=== PATIENT | female | born 2000 | race Caucasian/White ===

== ENCOUNTER 2021-01-03 16:48 | Emergency (ER) | payer MEDICAID, SELFPAY ==
--- NOTE | ~2021-01-03 | XR_ITS ---
XR foot LT min 3V DATE: 01/03/2021 17:27 INDICATION: Rolled ankle. Anteromedial left ankle and foot pain TECHNIQUE: 4 views COMPARISON: None FINDINGS: No fracture or dislocation, periosteal reaction or bone destruction is detected. Os tibiale externum, normal variant. IMPRESSION: Negative Reviewed, dictated and finalized at location A. IMPRESSION: Negative
--- NOTE | ~2021-01-03 | XR_ITS ---
XR ankle LT min 3V DATE: 01/03/2021 17:26 INDICATION: Rolled ankle. Anteromedial ankle and foot pain TECHNIQUE: 4 views COMPARISON: None FINDINGS: No fracture or dislocation of the ankle or disruption of the ankle mortise. No periosteal r eaction or bone destruction. IMPRESSION: No fracture or dislocation of the left ankle Reviewed, dictated and finalized at location A.
--- NOTE | 2021-01-03 16:59 | ED.LOWEXIN ---
HPI - Extremity Injury (Lower) General Chief Complaint: Extremity Injury, Lower Stated Complaint: Fell at home has a injury to left Ankle Time Seen by Provider: 01/03/21 17:45 Source: patient and RN notes reviewed Mode of arrival: ambulatory Limitations: no limitations History of Present Illness HPI Narrative: 20-year-old female presents with concern for left ankle and foot pain after rolling her ankle yesterday when she stepped on a rock. She reports medial ankle pain and pain at the dorsal aspect of the foot or toes. She reports she has been using ice. She denies decreased sensation, strength. Reports an old fracture in the left foot MD complaint: ankle injury and foot injury Related Data Home Medications Medication Instructions Recorded Confirmed No Home Medications 01/03/21 01/03/21 Allergies Allergy/AdvReac Type Severity Reaction Status Date / Time No Known Allergies Allergy Verified 01/03/21 17:07 Review of Systems Review of Systems: Narrative: CONSTITUTIONAL: Denies malaise, chills, sweats, or fever. SKIN: Denies left ankle and foot lacerations, abrasions, redness, warmth MUSCULOSKELETAL: Ports left ankle pain, swelling NEUROLOGIC: Denies numbness, weakness All systems reviewed & are unremarkable except as noted in HPI and below PMFSH Comments At time of signature, agree with nursing past medical, surgical, social and family history. There is no relevant family history pertinent to the presenting complaint Exam Narrative: Exam Narrative: GENERAL: Well-appearing, well-nourished, and in no acute distress. HEAD: Normocephalic, atraumatic. EYES: PERRLA, conjunctivae clear NECK: Supple. CHEST: Speaks in full sentences. No respiratory distress. HEART: Regular rate and rhythm. Normal and equal peripheral pulses. EXTREMITIES: Left ankle, foot, digits have normal strength and sensation, normal range of motion. No edema or ecchymosis. 5/5 strength with ankle and digit flexion and extension. Normal sensation with sensitivity to light touch and pain. No point tenderness. No open wounds, no skin tenting, no devitalized tissue or atrophy, no trophic changes, no obvious deformity, alignment normal, nearby joints and structures intact. Distal pulses palpable and equal bilaterally, skin warm, dry, pink. Capillary refill less than 3 seconds. SKIN: Warm, dry, no rash. NEURO: Alert and oriented x3. PSYCH: Normal mood and affect Course Course Emergency Course: Patient is aware of diagnosis, understands and agrees to treatment plan. Anticipatory guidance given. Patient agrees to follow-up as directed and is aware of reasons to seek care at the emergency department. Portions of this record may have been created with voice recognition software Vital Signs Vital signs: Vital Signs Temperature 98.4 F 01/03/21 17:00 Pulse Rate 94 01/03/21 17:00 Respiratory Rate 16 01/03/21 17:00 Blood Pressure 132/85 01/03/21 17:00 Pulse Oximetry 98 01/03/21 17:00 Temperature 98.4 F 01/03/21 17:00 Pulse Rate 94 01/03/21 17:00 Respiratory Rate 16 01/03/21 17:00 Blood Pressure 132/85 01/03/21 17:00 Pulse Oximetry 98 01/03/21 17:00 Reviewed. MDM - Extremity Injury (Lower) MDM Narrative Medical decision making narrative: Patients injury and pain is consistent with musculoskeletal etiology. No signs of neurological or vascular compromise on exam. Compartments and tissues are soft without signs of compartment syndrome. Pain is felt appropriate for further evaluation on an outpatient basis. Imaging Data My impression: Images reviewed, interpreted by radiologist, agree, see report. Radiologist's impression: XR ankle LT min 3V DATE: 01/03/2021 17:26 INDICATION: Rolled ankle. Anteromedial ankle and foot pain TECHNIQUE: 4 views COMPARISON: None FINDINGS: No fracture or dislocation of the ankle or disruption of the ankle mortise. No periosteal reaction or bone destruction. IMPRESSION: No fracture
[2021-01-03 17:00] VITALS: BP 132/85; PULSE 94; RESP 16; TEMP 36.9; O2SAT 98
== END 2021-01-03 17:59 | disposition home or self-care (01) ==
PROVIDERS: Emergency Provider Nurse Practitioner
DX: S93.402A Sprain of unspecified ligament of left ankle, initial encounter (principal); S96.912A Strain of unspecified muscle and tendon at ankle and foot level, left foot, initial encounter; X50.9XXA Other and unspecified overexertion or strenuous movements or postures, initial encounter
CPT/HCPCS: 73610; 73630; 99213; G0463

== ENCOUNTER 2021-10-20 11:13 | Emergency (ER) | payer OTHER, SELFPAY ==
[2021-10-20 11:17] VITALS: BP 141/76; PULSE 95; RESP 16; TEMP 36.4; O2SAT 96
[2021-10-20 11:34] VITALS: BP 141/76; PULSE 95; RESP 16; TEMP 36.4; O2SAT 96
--- NOTE | 2021-10-20 12:04 | ED.URI ---
HPI - URI/Sore Throat General Chief Complaint: Upper Respiratory Infection Stated Complaint: Cough, body aches Time Seen by Provider: 10/20/21 11:41 Source: patient and RN notes reviewed Mode of arrival: ambulatory Limitations: no limitations History of Present Illness HPI Narrative: Patient presents today complaining of 3-day history of cough with small amount of yellow sputum, body aches, chills sweats and chills, postnasal drip, headache. Denies fever, chest pain, shortness of breath. She is currently pain-free. Denies any sick contacts. She has been taking cold and flu medication with relief yesterday. Patient vapes. She did receive a flu vaccine this season. She has not been vaccinated against COVID-19. MD elicited complaint: cough Related Data Home Medications Medication Instructions Recorded Confirmed No Home Medications 01/03/21 10/20/21 Allergies Allergy/AdvReac Type Severity Reaction Status Date / Time No Known Allergies Allergy Verified 10/20/21 11:34 Review of Systems Review of Systems: CONSTITUTIONAL: Denies fever, chills, or sweats.+ Body aches, sweats and chills EYES: Denies visual changes, redness, or discharge. ENT: Denies rhinorrhea, congestion, sore throat, or otalgia.+ Postnasal drip CARDIOVASCULAR: Denies chest pain, palpitations, or edema. RESPIRATORY: Denies dyspnea.+ Cough GASTROINTESTINAL: Denies abdominal pain, nausea, vomiting, or diarrhea. GENITOURINARY: Denies dysuria or hematuria. SKIN: Denies rash, itching, or wounds. MUSCULOSKELETAL: Denies back pain, joint pain, or myalgia. NEUROLOGIC: Denies numbness, tingling, or weakness.+ Headache PSYCH: Denies depression or anxiety. [facility] Past Medical History Medical History (Updated 10/20/21 @ 12:11 by Barb Mc, [facility], ) Delivery with history of Pulmonary embolism Comments At time of signature, I have reviewed and agree with nursing past medical, surgical, social and family history unless otherwise noted. Please see nursing chart for further information. There is no relevant family history pertinent to the presenting complaint Exam Narrative: GENERAL: Mildly ill-appearing, well-nourished, and in no acute distress. HEAD: Normocephalic, atraumatic. EYES: EOMI. No redness or drainage. Conjunctivae normal. ENT: Mucous membranes pink and moist. Nares congested. No rhinorrhea. TMs normal bilaterally. Throat normal. Uvula midline. NECK: Normal AROM. Supple. No lymphadenopathy. CHEST: No respiratory distress. Clear to auscultation. HEART: Regular rate and rhythm. No murmur appreciated. Normal peripheral pulses. EXTREMITIES: Normal range of motion. No edema. SKIN: Warm, dry, no rash. Capillary refill normal. Normal skin turgor. NEURO: No focal deficits. Alert and oriented x3. Gait steady. PSYCH: Normal affect. No signs of depression or anxiety. Course Course Emergency Course: Patient declines COVID-19 test today. Level of Care: Express Care Visit Vital Signs Vital signs: Vital Signs Temperature 97.6 F 10/20/21 11:17 Pulse Rate 95 10/20/21 11:17 Respiratory Rate 16 10/20/21 11:17 Blood Pressure 141/76 H 10/20/21 11:17 Pulse Oximetry 96 10/20/21 11:17 Temperature 97.6 F 10/20/21 11:34 Pulse Rate 95 10/20/21 11:34 Respiratory Rate 16 10/20/21 11:34 Blood Pressure 141/76 H 10/20/21 11:34 Pulse Oximetry 96 10/20/21 11:34 Reviewed. Pt has been instructed to follow up with her PCP regarding her elevated blood pressure today. MDM - URI/Sore Throat Differential Diagnosis Differential diagnosis: Likely upper respiratory infection, sinusitis, viral infection, bronchitis and pharyngitis Lab Data Attestation: I reviewed the patient's lab results. Labs: Influenza A Screen Negative Reference Range: Negative Influenza B Screen Negative Reference Range: Neg
== END 2021-10-20 12:16 | disposition home or self-care (01) ==
PROVIDERS: Emergency Provider Nurse Practitioner
DX: J11.1 Influenza due to unidentified influenza virus with other respiratory manifestations (principal); Z86.711 Personal history of pulmonary embolism
CPT/HCPCS: 87804; 99213; G0463

== ENCOUNTER 2022-07-19 18:25 | Emergency (ER) | payer OTHER, SELFPAY | END 2022-07-19 18:30 | disposition left against medical advice (07) | LOC: ANHED 07-20 01:34 | DX: Z53.21 Procedure and treatment not carried out due to patient leaving prior to being seen by health care provider (principal) | CPT/HCPCS: 99199 ==

== ENCOUNTER 2023-01-30 16:49 | Emergency (ER) | payer OTHER, SELFPAY ==
--- NOTE | ~2023-01-30 | XR_ITS ---
EXAM: XR abdomen/kub 1V DATE: 01/30/2023 17:33 HISTORY: LUQ PAIN SINCE 01/25/23. . COMPARISON: None available. FINDINGS: Clear lung bases. Normal bowel gas pattern. No organomegaly. No abnormal abdominal calcifi cation. Regional bones and soft tissues normal for age. IMPRESSION: No radiographic evidence of obstruction or ileus. Reviewed, dictated and finalized at location K.
[2023-01-30 16:54] VITALS: BP 153/84; PULSE 83; RESP 20; TEMP 36.3; O2SAT 100
[2023-01-30 16:59] VITALS: BP 153/84; PULSE 83; RESP 20; TEMP 36.3; O2SAT 100
--- NOTE | 2023-01-30 17:03 | ED.GENADULT ---
HPI - General Adult General Chief complaint: Abdominal Pain Stated complaint: upper abdo pain History of Present Illness HPI narrative: PATIENT PRESENTS WITH GENERALIZED ABDOMINAL PAIN AND REPORTS LAST NORMAL BOWEL MOVEMENT OVER ONE WEEK AGO. NO NAUSE HAS TRIED STOOL SOFTNERS WITH NO GOOD RESULTS. REPORTS IRREGULAR PERIODS DUE TO NEW CONTROL SHE STARTED 2 MONTHS AGO. NO FEVER Related Data Allergies Allergy/AdvReac Type Severity Reaction Status Date / Time No Known Allergies Allergy Verified 10/20/21 11:34 Review of Systems Review of Systems: CONSTITUTIONAL: DENIES FEVER, CHILLS, OR SWEATS. EYES: DENIES VISUAL CHANGES, REDNESS, OR DISCHARGE. ENT: DENIES RHINORRHEA, CONGESTION, SORE THROAT, OR OTALGIA. CARDIOVASCULAR: DENIES CHEST PAIN, PALPITATIONS, OR EDEMA. RESPIRATORY: DENIES COUGH OR DYSPNEA. GASTROINTESTINAL: DENIES ABDOMINAL PAIN, NAUSEA, VOMITING, OR DIARRHEA. GENITOURINARY: DENIES DYSURIA OR HEMATURIA. SKIN: DENIES RASH OR ITCHING. MUSCULOSKELETAL: DENIES BACK PAIN, JOINT PAIN, OR MYALGIA. NEUROLOGIC: DENIES HEADACHE, NUMBNESS, OR WEAKNESS. PSYCHIATRIC: DENIES ANXIETY OR DEPRESSION. [facility]LY [facility] Past Medical History Medical History (Updated 01/30/23 @ 17:05 by NHAN Clarke) Delivery with history of Pulmonary embolism Exam Narrative: GENERAL: WELL-APPEARING, WELL-NOURISHED, AND IN NO ACUTE DISTRESS. HEAD: NORMOCEPHALIC, ATRAUMATIC. EYES: PERRLA AND EOMI. ENT: NARES CLEAR, NO RHINORRHEA OR EPISTAXIS. MUCOUS MEMBRANES MOIST. NECK: SUPPLE. CHEST: CLEAR TO AUSCULTATION. NO RESPIRATORY DISTRESS. HEART: REGULAR RATE AND RHYTHM. NO MURMUR HEARD. NORMAL PERIPHERAL PULSES. ABDOMEN: SOFT, NONTENDER, NONDISTENDED, NORMAL ACTIVE BOWEL SOUNDS. EXTREMITIES: NORMAL RANGE OF MOTION. NO EDEMA. SKIN: WARM, DRY, NO RASH. NEURO: NO FOCAL DEFICITS. ALERT AND ORIENTED X3. [place] SCALE EYE OPENING: SPONTANEOUS 4 [place] SCALE MOTOR: OBEYS COMMANDS 6 [place]ALE VERBAL: ORIENTED 5 [place] SCALE TOTAL 15 Course Course Level of Care: Express Care Visit Vital Signs Vital signs: Vital Signs Temperature 36.3 C L 01/30/23 16:54 Pulse Rate 83 01/30/23 16:54 Respiratory Rate 20 01/30/23 16:54 Blood Pressure 153/84 H 01/30/23 16:54 Pulse Oximetry 100 01/30/23 16:54 Oxygen Delivery Room Air 01/30/23 16:54 Temperature 36.3 C L 01/30/23 16:59 Pulse Rate 83 01/30/23 16:59 Respiratory Rate 20 01/30/23 16:59 Blood Pressure 153/84 H 01/30/23 16:59 Pulse Oximetry 100 01/30/23 16:59 Oxygen Delivery Room Air 01/30/23 16:59 PLEASE JAMI SCHEDULE A FOLLOWUP VISIT WITH YOUR PERSONAL PHYSICIAN FOR FURTHER EVALUATION AND TREATMENT. INCLUDING RECHECK AND DISCUSSION OF YOUR BLOOD PRESSURE. IF YOUR SYMPTOMS PERSIST, CHANGE OR WORSEN SIGNIFICANTLY BEFORE YOU CAN CONTACT YOUR PERSONAL PHYSICIAN THEN PLEASE, WITHOUT DELAY, GO TO THE EMERGENCY DEPARTMENT FOR FURTHER EVALUATION Medical Decision Making Vital Signs Vital Signs: Vital Signs Temperature 36.3 C L 01/30/23 16:54 Pulse Rate 83 01/30/23 16:54 Respiratory Rate 20 01/30/23 16:54 Blood Pressure 153/84 H 01/30/23 16:54 Pulse Oximetry 100 01/30/23 16:54 Oxygen Delivery Room Air 01/30/23 16:54 Temperature 36.3 C L 01/30/23 16:59 Pulse Rate 83 01/30/23 16:59 Respiratory Rate 01/30/23 16:59 Blood Pressure 153/84 H 01/30/23 16:59 Pulse Oximetry 100 01/30/23 16:59 Oxygen Delivery Room Air 01/30/23 16:59 Discharge Plan Discharge Clinical Impression: Constipation Patient Disposition: Home, Self-Care Condition: Stable Instructions: Constipation (DC), High Fiber Diet (ED), Abdominal Pain (ED) Additional Instructions: FOLLOW UP WITH PRIMARY CARE PROVIDER IN 2-3 DAYS FOR RE EVALUAITON INCREASE FLUIDS MEDICATION PRESCRIBED HIGH FIBER DIET IF ANY NEW OR WORSENING OF SYMPTOMS GO TO ER IMMEDIATELY Prescriptions: New polyethylene glycol 3
[2023-01-30] MEDS: BELLADONNA ALK/PHENOB ELIX 10 ML, MAG HYDROX/ALUMINUM HYD/SIMETH 30 ML, LIDOCAINE HCL 2... PO (17:34)
== END 2023-01-30 17:59 | disposition home or self-care (01) ==
PROVIDERS: Emergency Provider Nurse Practitioner Family
DX: K59.00 Constipation, unspecified (principal); Z86.711 Personal history of pulmonary embolism
CPT/HCPCS: 74018; 81003; 81025; 99213; A9270; G0463

== ENCOUNTER 2024-04-24 18:47 | Emergency (ER) | payer OTHER, SELFPAY ==
[2024-04-24 18:57] VITALS: BP 132/75; PULSE 102; RESP 20; TEMP 37.2; O2SAT 98
--- NOTE | 2024-04-24 19:19 | ED.ABDPAIN ---
HPI - Abdominal Pain General Chief Complaint: Abdominal Pain Stated Complaint: upper abdomen pain Time Seen by Provider: 04/24/24 19:05 Source: patient and RN notes reviewed Mode of arrival: ambulatory Limitations: no limitations History of Present Illness HPI narrative: Patient presents today complaining of epigastric abdominal pain x5 days with nausea. States the pain is intermittent but worse today. She has tried some Mylanta, Tums, and Tylenol with minimal relief. Currently rates her pain 5/10. History of GERD. States she has not eaten anything today as this irritates her stomach. She also reports that she tried a laxative a few days ago as well as today which did produce stool, but did not help with her abdominal discomfort. Related Data Allergies Allergy/AdvReac Type Severity Reaction Status Date / Time No Known Allergies Allergy Verified 04/24/24 19:06 Review of Systems Review of Systems: CONSTITUTIONAL: Denies body aches, fever, chills, or sweats. EYES: Denies visual changes, redness, or discharge. ENT: Denies rhinorrhea, congestion, sore throat, or otalgia. CARDIOVASCULAR: Denies chest pain, palpitations, or edema. RESPIRATORY: Denies cough or dyspnea. GASTROINTESTINAL: Denies vomiting, or diarrhea.+ abdominal pain, nausea GENITOURINARY: Denies dysuria or hematuria. SKIN: Denies rash, itching, or wounds. MUSCULOSKELETAL: Denies back pain, joint pain, or myalgia. NEUROLOGIC: Denies headache, numbness, tingling, or weakness. PSYCH: Denies depression or anxiety. [facility] Past Medical History Medical History (Updated 04/24/24 @ 19:25 by Barb Mc, [facility] [place], ) Delivery with history of GERD (gastroesophageal reflux disease) Pulmonary embolism Comments At time of signature, I have reviewed and agree with nursing past medical, surgical, social and family history unless otherwise noted. Please see nursing chart for further information. There is no relevant family history pertinent to the presenting complaint Exam Narrative: GENERAL: Well-appearing, well-nourished, and in no acute distress. HEAD: Normocephalic, atraumatic. EYES: EOMI. No redness or drainage. Conjunctivae normal. ENT: Mucous membranes pink and moist. NECK: Normal AROM. CHEST: No respiratory distress. Clear to auscultation. HEART: Regular rate and rhythm. No murmur appreciated. Normal peripheral pulses. ABDOMEN: Soft, nondistended, normal active bowel sounds.+ epigastric tenderness without rebound or guarding. EXTREMITIES: Normal range of motion. No edema. SKIN: Warm, dry, no rash. Capillary refill normal. Normal skin turgor. NEURO: No focal deficits. Alert and oriented x3. Gait steady. PSYCH: Normal affect. No signs of depression or anxiety. Course Course Emergency Course: Patient requesting a dose of viscous lidocaine as this was helpful last time she had similar symptoms and she presented here. Level of Care: Express Care Visit Vital Signs Vital signs: Vital Signs Temperature 99 F 04/24/24 18:57 Pulse Rate 102 H 04/24/24 18:57 Respiratory Rate 20 04/24/24 18:57 Blood Pressure 132/75 04/24/24 18:57 Pulse Oximetry 98 04/24/24 18:57 Oxygen Delivery Room Air 04/24/24 18:57 Temperature 99 F 04/24/24 18:57 Pulse Rate 102 H 04/24/24 18:57 Respiratory Rate 20 04/24/24 18:57 Blood Pressure 132/75 04/24/24 18:57 Pulse Oximetry 98 04/24/24 18:57 Oxygen Delivery Room Air 04/24/24 18:57 Reviewed MDM - Abdominal Pain MDM Narrative Medical decision making narrative: Patient's symptoms are likely due to GERD/gastritis. Prescription for omeprazole sent to pharmacy. Prescription for Zofran sent to pharmacy for nausea. Anticipatory guidance given. Differential Diagnosis Differential diagnosis: Likely abdominal pain and other (Gastritis, GERD) Critical Care Time Critical Care Time Critical Care Time: No Discharge Plan Discharge Clinical Impression: Gastritis Eduardo
[2024-04-24] MEDS: LIDOCAINE HCL 2% VISC SOLN 15 ML UDC 10 ML PO (19:23)
[2024-04-24] MEDS: MAG HYDROX/AL HYDROX/SIMETH 30 ML UDC PO (19:23)
== END 2024-04-24 19:33 | disposition home or self-care (01) ==
PROVIDERS: Emergency Provider Nurse Practitioner
DX: K29.00 Acute gastritis without bleeding (principal); K21.9 Gastro-esophageal reflux disease without esophagitis; Z86.711 Personal history of pulmonary embolism
CPT/HCPCS: 99213; A9270; G0463

== ENCOUNTER 2025-06-02 10:23 | Emergency (ER) | payer OTHER, SELFPAY ==
[2025-06-02 10:34] VITALS: BP 142/66; PULSE 104; RESP 20; TEMP 37.2; O2SAT 97
[2025-06-02 11:22] LABS: EDSTREPNEGPOS1 Positive (Negative)
--- NOTE | 2025-06-02 11:35 | ED_ITS ---
HPI - URI/Sore Throat General Chief Complaint: Upper Respiratory Infection Stated Complaint: Sore Throat/Body Aches Time Seen by Provider: 06/02/25 11:20 Source: patient and RN notes reviewed Mode of arrival: ambulatory Limitations: no limitations History of Present Illness HPI Narrative: 24-year-old female presents Express Care complaining of sore throat that started yesterday. Patient also reports body aches, chills and sweats. Patient denies any other upper respiratory symptoms, fevers, nausea vomiting, diarrhea, chest pain, difficulty breathing, or any other symptoms. Patient has not tried anything [id number] to help with symptoms. Related Data Allergies Allergy/AdvReac Type Severity Reaction Status Date / Time No Known Allergies Allergy Verified 06/02/25 10:33 Review of Systems Review of Systems: CONSTITUTIONAL: Denies fever Positive for body aches, chills, sweats. EYES: Denies visual changes, redness, or discharge. ENT: Denies rhinorrhea, congestion, or otalgia. Positive for sore throat. CARDIOVASCULAR: Denies chest pain, palpitations, or edema. RESPIRATORY: Denies cough or dyspnea. GASTROINTESTINAL: Denies abdominal pain, nausea, vomiting, or diarrhea. GENITOURINARY: Denies dysuria or hematuria. SKIN: Denies rash or itching. MUSCULOSKELETAL: Denies back pain, joint pain, or myalgia. NEUROLOGIC: Denies headache, numbness, or weakness. PSYCHIATRIC: Denies anxiety or depression. All other systems reviewed are negative, except as documented in HPI. [facility] Past Medical History Medical History GERD (gastroesophageal reflux disease) Delivery with history of Pulmonary embolism Comments At the time of my signature, I reviewed and agree with the nursing past medical, surgical, social, and family history. There is no relevant family history pertinent to the patient complaint. Exam Narrative: GENERAL: This is a well-nourished, well-developed adult, in no apparent distress. They are non ill-appearing, nontoxic appearing. HEAD: normocephalic, atraumatic. EYES: Sclera clear/white. Conjunctiva normal. Vision is grossly intact. Extraocular movements intact EARS: External ears normal, auditory canals clear and without drainage, TMs normal without perforation. Hearing grossly intact. NOSE: External nose normal with no obvious nasal discharge, nasal turbinates without redness, no rhinorrhea. THROAT: Mucous membranes moist, posterior pharynx erythematous red and patchy. Tonsils 3+ erythematous no exudate. Uvula midline. NECK: Neck supple, mild tender cervical lymphadenopathy, no masses or thyromegaly. CARDIOVASCULAR: Regular rate and rhythm without murmurs, gallops, or rubs. RESPIRATORY: Clear to auscultation. Breath sounds equal bilaterally. No wheezes, rales, or rhonchi. SKIN: warm, Dry, intact with no suspicious lesions or rash, good texture and turgor. NEURO: awake, alert, and oriented to person, place and time. There were no obvious focal neurologic abnormalities. EXTREMITIES: No joint tenderness, effusion, or edema noted. BACK: Nontender without deformity. No CVA tenderness. Course Course Emergency Course: Portions of this record may have been created with voice recognition software Level of Care: Express Care Visit Vital Signs Vital signs: Vital Signs Temperature 99.0 F 06/02/25 10:34 Pulse Rate 104 H 06/02/25 10:34 Respiratory Rate 20 06/02/25 10:34 Blood Pressure 142/66 H 06/02/25 10:34 Pulse Oximetry 97 06/02/25 10:34 Oxygen Delivery Room Air 06/02/25 10:34 Temperature 99.0 F 06/02/25 10:34 Pulse Rate 104 H 06/02/25 10:34 Respiratory Rate 20 06/02/25 10:34 Blood Pressure 142/66 H 06/02/25 10:34 Pulse Oximetry 97 06/02/25 10:34 Oxygen Delivery Room Air 06/02/25 10:34 Reviewed MDM - URI/Sore Throat MDM Narrative Medical decision making narrative: Rapid strep positive. Symptoms clinically consistent with strep pharyngitis. Will treat with amoxicillin. Discussed physical exam findings. Advised supportive measures and signs/symptoms to go to the ER. Pt is appropriate for outpt treatment and f/u. Differential Diagnosis Differential diagnosis: Likely upper respiratory infection, sinusitis, viral infection and pharyngitis Lab Data Attestation: I reviewed the patient's lab results. Labs: Lab Results 06/02/25 Range/Units 10:34 POC Grp A Strep Screen Positive (Negative) Critical Care Time Critical Care Time Critical Care Time: No Discharge Plan Discharge Clinical Impression: Pharyngitis Qualifiers: Pharyngitis/tonsillitis etiology: streptococcus Qualified Code(s): J02.0 - Streptococcal pharyngitis Patient Disposition: Home Condition: Stable Instructions: Antibiotic Form, Strep Throat (ED) Additional Instructions: You tested positive for strep throat. ?Please take the amoxicillin as prescribed until gone. ?You will be contagious for 24 hours after starting the medication. ?After 24 hours on antibiotics throw tooth brush away and start using a new one. Wash your sheets and cup/water bottle that is used daily. Do not share drinks. Take Tylenol or Ibuprofen as needed for pain or fever, if able. ?Rest and stay hydrated. ?Follow up with your PCP in 3 days if symptoms are not improving. ?Go to the ER immediately if you develop worsening symptoms such as shortness of breath, difficulty swallowing, chest pains, vomiting, or any serious concerns. ? Patient Language: Faroese Prescriptions: New amoxicillin 500 mg tablet 500 mg PO Q12H 10 Days Qty: 20 0RF Follow-up/Referrals: PHYSICIAN,EEG TECHNICIAN [Primary Care Provider, Internal Medicine] Stand Alone Forms: Work/School Release IP Time of Disposition: 11:33
== END 2025-06-02 11:38 | disposition home or self-care (01) ==
DX: J02.0 Streptococcal pharyngitis (principal); K21.9 Gastro-esophageal reflux disease without esophagitis; Z86.711 Personal history of pulmonary embolism
CPT/HCPCS: 87880; 99213; G0463

== ENCOUNTER 2025-06-22 08:13 | Emergency (ER) | payer OTHER, SELFPAY ==
[2025-06-22 08:17] VITALS: BP 125/87; PULSE 95; RESP 16; TEMP 36.3; O2SAT 98
--- OUTSIDE RECORDS SUMMARY | 2025-06-22 08:17 | XMS_ITS | Clinical Summary ---
Author Organization [facility] Address [address] [place] [address] Care Team Providers Care Religious Education Coordinator Name Role Phone No, Physician Primary Care Provider [phone] Reyes Torres MD Unavailable [phone] Allergies No known active allergies Medications acetaminophen (TYLENOL) 325 mg tablet Take 650 mg by mouth every 6 (six) hours as needed for pain Active NIFEdipine (NIFEdipine CC) 30 mg 24 hr tablet Take 1 tablet (30 mg total) by mouth daily 30 tablet 1 3 Active Additional Information Patient not taking.Reported on 09/26/2022 oxyCODONE-aceta minophen (PERCOCET) 5-325 mg per tabletIndicatio ns:Pain Take 2 tablets by mouth every 8 (eight) hours as needed for pain 10 tablet 4 Active naproxen (NAPROSYN) 500 mg tablet Take 1 tablet (500 mg total) by mouth 2 (two) times a day with meals 30 tablet 5 Active Active Problems Problem Noted Date Diagnosed Date Cholecystitis 05/15/2024 Abdominal pain 05/11/2024 Choledocholithiasis 05/11/2024 Bile duct obstruction 05/11/2024 Elevated liver enzymes 05/11/2024 Supervision of high-risk first ang 12/21/2021 Overview (01/10/2022): 1st Trimester: [] Dating Criteria: [] Labs: Rh *, Ab *, CBC *, Rubella *, VZV *, HIV *, RPR *, HepBSAg *, Hep C Ab * [] GC/CT/Trich: [] UCx: [] vitamins [] Genetic Screening: to be counseled. [] CF/SMA carrier screening: to be counseled [] Hgb electrophoresis: tbd [] Pap: [] EPDS: PNBHS referral (if indicated) [] ASA at 12 weeks (if indicated) [] DM screening: HgbA1c * (<5.7: no further test until 2T screen, 5.7-6.5: obtain 2h GTT, >6.5: refer to CDP) [] Feeding Preferences Survey: benefits of discussed with patient and partner 2nd Trimester: [] Anatomy ultrasound: [] CBC: [] 1hr gtt at 24-28wks: [] Flu Shot (Mar-Jun): [] Tdap (27-36wks): [] Rhogam (if Rh neg): [] Childbirth classes discussed [] education (colostrum, expected breast changes, plan for RTW) and breast pump ordered 3rd Trimester: [] CBC/HIV/RPR/T&S: [] GBS: [] GC/CT/Trich (if indicated): [] Final discussion (S2S, Baby Friendly, LC Support, PP experience) Counseling [] Method of delivery: TBD [] Timing of delivery: TBD [] MOC: tbd [] MOF: undecided [] COVID-19 vaccine counseling [] COVID-19 screen prior to scheduled admission [] education: completed in all 3 trimesters [] Lpn Cma: [] Car seat discussed [] PP depression counseling History of pulmonary embolism 12/21/2021 Overview (01/10/2022): The VTE events occurred in the setting of multiple risk factors: exogenous estrogen use, active malignancy, and immobilization. Given that she experienced multiple VTEs and one was potentially related to estrogen use, I believe that she is at increased risk for VTE during . I recommend screening today with an antiphospholipid panel and thrombophilia panel as she does not think this has been done before. If the results are negative, I recommend that at least prophylactic LMWH be initiated when the patient becomes to reduce her risk of VTE. We discussed that whether to initiate prophylactic versus therapeutic LMWH is debatable- she had multiple VTE events but they were all in the setting of a non-recurrent risk factor of malignancy; therefore her risk is likely much lower than a recurrent risk factor. She is very reluctant to start LMWH but is agreeable to this plan. Given that her main risk factor of malignancy is non-recurrent, I think that prophylactic LMWH would be reasonable with consideration for therapeutic dosing for 6 weeks . She should also see MFM early in her . Given her history, she is at increased risk for intrauterine growth restriction and intrauterine demise. Therefore, serial ultrasounds are recommended to follow growth, along with third trimester surveillance, and delivery at 39 weeks for any patient on anticoagulation. We discussed that Lovenox has been used widely in with proven efficacy and safety. I recommend proceeding with induction of labor at 39 weeks to control the timing of delivery in order to ensure that she can obtain regional anesthesia. She should continue her lovenox until the day prior to induction for 24 hours, which is the shortest amount of time recommended prior to obtaining regional anesthesia. We reviewed that bleeding during delivery, although is a concern on any sort of anticoagulation, can typically be well controlled with the usual agents and protamine, and thus is not the biggest risk. However, if she were to spontaneously present in labor, she would need to wait for 24 hours after her most recent dose prior to receiving regional anesthesia. An anesthesia in the third trimester is recommended to discuss this in further detail. Anticoagulation therapy can be restarted 6 hours after a vaginal delivery, or 12 hours after a section. We reviewed that both Lovenox and Coumadin are safe in breast feeding. anticoagulation should be continued for at least 6 weeks. Morbid obesity 12/21/2021 Overview (01/10/2022): We discussed the risks associated with obesity, including preeclampsia, gestational diabetes, delivery, growth abnormalities (IUGR and macrosomia) and stillbirth. We would recommend a specialized anatomic survey, serial growth assessment and testing. Aspirin 81mg should be started after 12 weeks to decrease the risk of preeclampsia. She does have a HbA1c pending today to rule out any underlying diabetes. If HbA1c is less than 6.5, will obtain early 1hr GCT. History of section 12/21/2021 Family history of Down syndrome 12/21/2021 Overview (01/10/2022): Brother with Trisomy 21. Encounters Date Type Department Care Team Description 05/28/2025 11:45 PM SHOE LAY OUT PLANNER - 05/29/2025 4:03 AM SHOE LAY OUT PLANNER Emergency [facility] Emergency Department [address] [place] [address] Radha Leroy MD Acute pain of right knee (Primary Dx); Fall, initial encounter Discharge Disposition: Discharge to home or self care from Last 3 Months Immunizations Immunization Administration Dates Next Due Influenza, Trivalent, Preservative Free, Intramu scular 05/12/2024 Surgical History Surgery Date Site/Laterality Comments SECTION Medical History Medical History Date Comments Pulmonary embolism Social History Tobacco Use Types Packs/Day Years Used Date Smoking Tobacco: Former Smokeless Tobacco: Never Tobacco Cessation:Counseling Given: Not Answered Comments:pt reports quitting a month ago Alcohol Use Standard Drinks/Week Comments Not Currently 0 (1 standard drink = 0.6 oz pur e alcohol) City Gradeities Answer Date Recorded In the past 12 months has Fav[employer], gas, oil, or water [employer] threatened to shut off services in your home? No 05/14/2024 Social Connection and Isolation Panel Answer Date Recorded In a typical week, how many times do you talk on the phone with family, friends, or neighbors? More than three times a week 05/14/2024 How often do you get togethe r with friends or relatives? More than three times a week 05/14/2024 How often do you attend chur or religion services? Never 05/14/2024 Do you belong to any clubs o r organizations such as christianity groups, unions, fraternal or athletic groups, or school groups? No 05/14/2024 How often do you attend meet ings of the clubs or organizations you belong to? Never 05/14/2024 Are you , , di vorced, , never , or living with a partner? Living with partner 05/14/2024 AUDIT-C Answer Date Recorded Q1: How often do you have a drink containing alc ohol? Never 07/19/2022 Average Number of Drinks Not on file 023 Q3: How often do you have si x or more drinks on one occasion? Never 07/19/2022 Overall Financial Resource Strain (CARDIA) Answe r Date Recorded How hard is it for you to pa y for the very basics like food, housing, medical care, and heating? Not hard at all 05/14/2024 Hunger Vital Sign Answer Date Recorded Within the past 12 months, y ou worried that your food would run out before you got the money to buy more. Never true 05/14/20 24 Within the past 12 months, t he food you bought just didn't last and you didn't have money to get more. Never true 05/14/2024 PRAPARE - Transportation Answer Date Re corded In the past 12 months, has l ack of transportation kept you from medical appointments or from getting medications? No 04/17 In the past 12 months, has l ack of transportation kept you from meetings, work, or from getting things needed for daily living? No 05/14/2024 Housing Stability Vital Sign Answer Orlin e Recorded In the last 12 months, was t here a time when you were not able to pay the mortgage or rent on time? No 05/14/2024 In the past 12 months, how m any times have you moved where you were living? 0 05/14/2024 At any time in the past 12 m [facility], were you homeless or living in a half-way (including now)? No 05/14/2024 Personal Safety Answer Date Recorded Have you ever been in or are you currently in a harmful physical or emotional relationship or is someone making you feel afraid or unsafe? Denies 05/28/2025 Comments No Sex and Gender Information Value Date Recorded Sex Assigned at Not on file Legal Sex Female 10:52 AM SHOE LAY OUT PLANNER Gender Identity Not on file Sexual Orientation Not on file Obstetrics History Para Term AB IAB SAB Ectopic Multiple Livin g Live Births 2 1 1 0 0 1 1 Date Outcome GA Total Labor Labor/2nd/3rd Weight Sex Type Anes PTL Karen A1 A5 Name Clin 2020 Term 39w 1d 3.033 kg (6 lb 11 oz) CS-LT ranv Living Last Filed Vital Signs Vital Sign Reading Time Taken Comments Blood Pressure 137/86 05/28/2025 10:23 PM SHOE LAY OUT PLANNER Pulse 97 05/28/2025 10:23 PM SHOE LAY OUT PLANNER Temperature 37.1 C (98.8 F) 05/28/2025 10:23 PM SHOE LAY OUT PLANNER Respiratory Rate 18 05/28/2025 10:23 PM SHOE LAY OUT PLANNER Oxygen Saturation 95% 05/28/2025 10:23 PM SHOE LAY OUT PLANNER Inhaled Oxygen Concentration - - Weight 108.9 kg (240 lb) 05/28/2025 10:21 PM SHOE LAY OUT PLANNER Height 157.5 cm (5' 2) 05/28/2025 10:21 PM SHOE LAY OUT PLANNER Body Mass Index 43.9 05/28/2025 10:21 PM SHOE LAY OUT PLANNER Plan of Treatment Health Maintenance Due Date Last Done Comments Cervical Cancer Screening 1998 Depression Screening 1998 Regular Well Visit/Exam 18-64 2016 Influenza Vaccine (#1) 2025 , 05/06/2022, 04/22/2020, Additional history exists DTaP/Tdap/Td Vaccine (8 - Td or Tdap) 05/06/2032 05/06/2022, 05/20/2020, 11/19/2009, Additional history exists Hepatitis B Screening Completed 06/30/1999 Varicella Vaccines Completed 03/23/2010, 02/11/2002 HPV Vaccines Completed 01/19/2011, 09/15, 05/25/2010 Hepatitis C Screening Completed 05/11/2024 Pneumococcal vaccine <65 Aged Out No longer eligible based on patient's age to complete this topic Procedures Procedure Name Priority Date/Time Associated Diagnosis Comments XR KNEE RIGHT 1 OR 2 VIEWS ED 05/29/2025 12:23 AM SHOE LAY OUT PLANNER XR TIBIA FIBULA RIGHT2 VIEWS ED 05/29/2025 12:23 AM SHOE LAY OUT PLANNER XR FEMUR RIGHT 2 OR MORE VIEWS ED 05/29/2025 12:23 AM SHOE LAY OUT PLANNER HEPATITIS PANEL, ACUTE Routine 05/11/2024 1:12 PM CDT from Last 3 Months or Most Recently Relevant to Health Maintenance Results * XR Femur Right 2 or More Views (05/29/2025 12:23 AM SHOE LAY OUT PLANNER) Anatomical Region Laterality Modality Lower Extremities, Thigh, Femur Right Computed Radiography 05/29/2025 8:07 AM SHOE LAY OUT PLANNER Impressions 05/29/2025 8:07 AM SHOE LAY OUT PLANNER 1. No acute osseous abnormality of the right femur, knee, or tibia and fibula. 2. Possible trace knee joint effusion. Electronically signed by: Luis Angel Cerna M.D. Narrative 05/29/2025 8:07 AM SHOE LAY OUT PLANNER EXAM DESCRIPTION: XR FEMUR RIGHT 2 OR MORE VIEWS, XR TIBIA FIBULA RIGHT2 VIEWS, XR KNEE RIGHT 1 OR 2 VIEWS REASON FOR STUDY: fall TECHNIQUE: XR FEMUR RIGHT 2 VIEWS, XR TIBIA FIBULA RIGHT 2 VIEWS, XR KNEE RIGHT 2 VIEWS COMPARISON: None. FINDINGS: Right femur: No acute fracture or dislocation. No erosion or aggressive osseous lesion. Right knee: No acute fracture or dislocation. There may be a trace joint effusion. Right tibia and fibula: No acute fracture or dislocation. No abnormal periosteal reaction. Procedure Note Luis Angel Cerna MD - 05/29/2025 EXAM DESCRIPTION: XR FEMUR RIGHT 2 OR MORE VIEWS, XR TIBIA FIBULA RIGHT2 VIEWS, XR KNEE RIGHT 1 OR 2 VIEWS REASON FOR STUDY: fall TECHNIQUE: XR FEMUR RIGHT 2 VIEWS, XR TIBIA FIBULA RIGHT 2 VIEWS, XR KNEE RIGHT 2 VIEWS COMPARISON: None. FINDINGS: Right femur: No acute fracture or dislocation. No erosion or aggressive osseous lesion. Right knee: No acute fracture or dislocation. There may be a trace joint effusion. Right tibia and fibula: No acute fracture or dislocation. No abnormal periosteal reaction. IMPRESSION: 1. No acute osseous abnormality of the right femur, knee, or tibia and fibula. 2. Possible trace knee joint effusion. Electronically signed by: Luis Angel Cerna M.D. [facility] IMG XR PROCEDURES Final R esult * XR Tibia Fibula Right 2 Views (05/29/2025 12:23 AM SHOE LAY OUT PLANNER) Anatomical Region Laterality Modality Lower Extremities, Lower Leg Right Com puted Radiography 05/29/2025 8:07 AM SHOE LAY OUT PLANNER Impressions 05/29/2025 8:07 AM SHOE LAY OUT PLANNER 1. No acute osseous abnormality of the right femur, knee, or tibia and fibula. 2. Possible trace knee joint effusion. Electronically signed by: Luis Angel Cerna M.D. Narrative 05/29/2025 8:07 AM SHOE LAY OUT PLANNER EXAM DESCRIPTION: XR FEMUR RIGHT 2 OR MORE VIEWS, XR TIBIA FIBULA RIGHT2 VIEWS, XR KNEE RIGHT 1 OR 2 VIEWS REASON FOR STUDY: fall TECHNIQUE: XR FEMUR RIGHT 2 VIEWS, XR TIBIA FIBULA RIGHT 2 VIEWS, XR KNEE RIGHT 2 VIEWS COMPARISON: None. FINDINGS: Right femur: No acute fracture or dislocation. No erosion or aggressive osseous lesion. Right knee: No acute fracture or dislocation. There may be a trace joint effusion. Right tibia and fibula: No acute fracture or dislocation. No abnormal periosteal reaction. Procedure Note Luis Angel Cerna MD - 05/29/2025 EXAM DESCRIPTION: XR FEMUR RIGHT 2 OR MORE VIEWS, XR TIBIA FIBULA RIGHT2 VIEWS, XR KNEE RIGHT 1 OR 2 VIEWS REASON FOR STUDY: fall TECHNIQUE: XR FEMUR RIGHT 2 VIEWS, XR TIBIA FIBULA RIGHT 2 VIEWS, XR KNEE RIGHT 2 VIEWS COMPARISON: None. FINDINGS: Right femur: No acute fracture or dislocation. No erosion or aggressive osseous lesion. Right knee: No acute fracture or dislocation. There may be a trace joint effusion. Right tibia and fibula: No acute fracture or dislocation. No abnormal periosteal reaction. IMPRESSION: 1. No acute osseous abnormality of the right femur, knee, or tibia and fibula. 2. Possible trace knee joint effusion. Electronically signed by: Luis Angel Cerna M.D. [facility] RODRIGUES IM XR PROCEDURES Final R esult * XR Knee Right 1 or 2 Views (05/29/2025 12:23 AM SHOE LAY OUT PLANNER) Anatomical Region Laterality Modality Lower Extremities, Knee Right Computed Radiography 05/29/2025 8:07 AM SHOE LAY OUT PLANNER Impressions 05/29/2025 8:07 AM SHOE LAY OUT PLANNER 1. No acute osseous abnormality of the right femur, knee, or tibia and fibula. 2. Possible trace knee joint effusion. Electronically signed by: Luis Angel Cerna M.D. Narrative 05/29/2025 8:07 AM SHOE LAY OUT PLANNER EXAM DESCRIPTION: XR FEMUR RIGHT 2 OR MORE VIEWS, XR TIBIA FIBULA RIGHT2 VIEWS, XR KNEE RIGHT 1 OR 2 VIEWS REASON FOR STUDY: fall TECHNIQUE: XR FEMUR RIGHT 2 VIEWS, XR TIBIA FIBULA RIGHT 2 VIEWS, XR KNEE RIGHT 2 VIEWS COMPARISON: None. FINDINGS: Right femur: No acute fracture or dislocation. No erosion or aggressive osseous lesion. Right knee: No acute fracture or dislocation. There may be a trace joint effusion. Right tibia and fibula: No acute fracture or dislocation. No abnormal periosteal reaction. Procedure Note Luis Angel Cerna MD - 05/29/2025 EXAM DESCRIPTION: XR FEMUR RIGHT 2 OR MORE VIEWS, XR TIBIA FIBULA RIGHT2 VIEWS, XR KNEE RIGHT 1 OR 2 VIEWS REASON FOR STUDY: fall TECHNIQUE: XR FEMUR RIGHT 2 VIEWS, XR TIBIA FIBULA RIGHT 2 VIEWS, XR KNEE RIGHT 2 VIEWS COMPARISON: None. FINDINGS: Right femur: No acute fracture or dislocation. No erosion or aggressive osseous lesion. Right knee: No acute fracture or dislocation. There may be a trace joint effusion. Right tibia and fibula: No acute fracture or dislocation. No abnormal periosteal reaction. IMPRESSION: 1. No acute osseous abnormality of the right femur, knee, or tibia and fibula. 2. Possible trace knee joint effusion. Electronically signed by: Luis Angel Cerna M.D. Amar[facility] RODRIGUES IMG XR PROCEDURES Final R esult * Hepatitis panel, acute Blood (05/11/2024 1:12 PM CDT) Hep A IgM Nonreactive Nonreactive Comment: Interpretive Data: If Hep A IgM Ab is reported as Equivocal, a new sample should be drawn in two weeks for testing. Current interpretive data was last revised on 19. Hep B core IgM Nonreactive Nonreactive [facility] Comment: Interpretive Data If HepB Core IgM Ab is reported as Equivocal, a new sample should be drawn in two weeks for testing. Current interpretive data was last revised on 19. Hep C Ab Nonreactive Nonreactive [facility] Comment: Interpretive Data Nonreactive: Antibodies to HCV not detected. Does NOT exclude the possibility of recent exposure to HCV. Equivocal: Equivocal for HCV antibodies. Supplemental molecular testing will be automatically performed to determine infection status in accordance with current CDC screening recommendations. Reactive: Positive for HCV antibodies. This may represent current or past HCV infection. Supplemental molecular testing will be automatically performed to determine current infection status in accordance with current CDC screening recommendations. Interpretive data was last revised on 2019. HepBsAg Nonreactive Nonreactive [facility] Blood 05/11/2024 1:12 PM CDT 05/11/2024 1:40 PM CDT Samantha De La Cruz MD LAB MICROBIOLOGY - GENERA L ORDERABLES Final Result [facility] [id number] Department [place] [address] from Last 3 Months or Most Recently Relevant to Health Maintenance Insurance [facility] Advance Directives For more information, please contact: [phone] * Full Code (Latest Code Status on File) Date Activated Date Inactivated Comments 05/11/2024 7:44 AM 05/22/2024 5:12 PM Care Teams Religious Education Coordinator Relationship Specialty Start Date End Date No, Physician PCP - General 12/15/19 [place] [id number] [place] [address] Surgeon Colon and Rectal Surgery 05/21/24
--- NOTE | 2025-06-22 08:30 | ED.URI ---
HPI - URI/Sore Throat General Chief Complaint: Upper Respiratory Infection Stated Complaint: Sore Throat Time Seen by Provider: 06/22/25 08:30 Source: patient Mode of arrival: ambulatory Limitations: no limitations History of Present Illness HPI Narrative: 24 yo F presents with c/o sore throat, chills, bodyaches, fatigue for 3 to 4 days. Took 2 days worth of amoxicillin that she had left over from previous prescription because she feels like she has strep. Denies N/V. Treated for strep 06/02. All systems reviewed and negative except as noted above. Related Data Allergies Allergy/AdvReac Type Severity Reaction Status Date / Time No Known Allergies Allergy Verified 06/22/25 08:23 [facility] Past Medical History Medical History GERD (gastroesophageal reflux disease) Delivery with history of Pulmonary embolism Comments At time of signature, agree with nursing past medical, surgical, social and family history. There is no relevant family history pertinent to the presenting complaint. Exam Narrative: GENERAL: This is a well-nourished, well-developed patient, in no apparent distress. HEAD: normocephalic, atraumatic. EYES: PERRL. Sclera clear/white. Vision is grossly intact. EARS: External ears normal, auditory canals clear and without drainage, TMs normal without perforation. Hearing grossly intact. NOSE: External nose normal with no obvious nasal discharge, nares without redness, no rhinorrhea. THROAT: Mucous membranes moist, erythematous, tonsils 2+ bilaterally, no exudates NECK: Neck supple, non-tender without lymphadenopathy, masses or thyromegaly. CARDIOVASCULAR: Regular rate and rhythm without murmurs, gallops, or rubs. RESPIRATORY: Clear to auscultation. Breath sounds equal bilaterally. No wheezes, rales, or rhonchi. SKIN: warm, Dry, intact with no suspicious lesions or rash, good texture and turgor. NEURO: awake, alert, and oriented to person, place and time. There were no obvious focal neurologic abnormalities. EXTREMITIES: No joint tenderness, effusion, or edema noted. Course Course Level of Care: Express Care Visit Vital Signs Vital signs: Vital Signs Temperature 36.3 C L 06/22/25 08:17 Pulse Rate 95 06/22/25 08:17 Respiratory Rate 16 06/22/25 08:17 Blood Pressure 125/87 06/22/25 08:17 Pulse Oximetry 98 06/22/25 08:17 Oxygen Delivery Room Air 06/22/25 08:17 Temperature 36.3 C L 06/22/25 08:17 Pulse Rate 95 06/22/25 08:17 Respiratory Rate 16 06/22/25 08:17 Blood Pressure 125/87 06/22/25 08:17 Pulse Oximetry 98 06/22/25 08:17 Oxygen Delivery Room Air 06/22/25 08:17 reviewed MDM MDM Narrative Medical decision making narrative: neg rapid strep. most likely inaccurate due to recent amoxicillin use. will treat for strep throat. Differential Diagnosis Differential Diagnosis: Differential diagnostic considerations for upper respiratory infection include upper respiratory infection, croup, otitis media, sinusitis, viral infection, bronchitis, influenza, pharyngitis, strep, uvulitis.? Discharge Plan Discharge Clinical Impression: Acute pharyngitis Patient Disposition: Home Condition: Stable Instructions: Antibiotic Form, Pharyngitis (ED) Additional Instructions: Take antibiotic as prescribed until gone. Take tylenol or ibuprofen every 6 to 8 hours as needed for pain/fever. Drink plenty of fluids and rest. Patient Language: Albanian Prescriptions: New amoxicillin 500 mg capsule 500 mg PO Q12H 10 Days Qty: 20 0RF Follow-up/Referrals: PHYSICIAN,IMPACT HAMMER OPERATOR [Primary Care Provider, Internal Medicine] Stand Alone Forms: Work/School Release IP Time of Disposition: 08:38
[2025-06-22 08:33] LABS: EDSTREPNEGPOS1 Negative (Negative)
== END 2025-06-22 08:49 | disposition home or self-care (01) ==
PROVIDERS: Emergency Provider Nurse Practitioner Family
DX: J02.9 Acute pharyngitis, unspecified (principal); K21.9 Gastro-esophageal reflux disease without esophagitis; Z86.711 Personal history of pulmonary embolism
CPT/HCPCS: 87081; 87880; 99213; G0463